=== PATIENT | male | born 1980 | race Caucasian/White ===

== ENCOUNTER → 2018-08-09 | Outpatient (CLI) | payer BC, OTHER ==
--- NOTE | 2018-08-09 10:34 | CONS ---
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 Radiographically the implant looks very good with no changes from x-rays taken 2008. However given the patient's symptoms laboratory markers including ESR, CRP, CBC with differential, metal ion levels will need to be obtained to rule out any possible infection and/or metallosis. If all these labs are normal this is likely a soft tissue issue. His knee pain is secondary to distal IT band tendinitis. The patient is very active and runs triathlons. Recommended the patient that although the hip resurfacing was designed for active people that ongoing high impact activities such as running and triathlons and training for them could and will decrease the longevity of the implant. Recommended continued physical activity but she is low impact activities. Will call patient with the lab results. If the results are normal will start outpatient physical therapy for greater trochanteric bursitis, IT band tendinitis, and patellofemoral syndrome. If the labs are abnormal he will follow-up for a clinic visit. Consultation Date/Type/Reason Admit Date/Time Date of Consultation: Aug 09, 2018 Reason for Consultation Right hip and knee pain Date/Time of Note DATE: 08/09/18 TIME: 10:32 Hx of Present Illness This is a 30-year-old male presents to clinic today for right hip and right knee pain for about 1.5 years. He has a history of a right hip resurfacing by Dr. Shea in 2007 for AVN of the femoral head. He was doing very well until 1.5 years ago. He is very active and does participate in triathlons. He does complain of groin pain as well as lateral hip pain as well as lateral knee pain. Denies any mechanical symptoms in the knee or swelling in the knee. The pain is most significant severe when running. He can tolerate the swimming and cycling portions of the triathlon however the running portion and weightbearing activities does cause him pain. 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 Denies any fevers or chills. The pain is 4/10. Described as sharp and throbbing. He has been taking ibuprofen and icing. This does help. Patient denies a limp. Denies need for gait aids. Denies numbness and tingling. Denies any history of back issues. Patient denies fever, chills, shortness of breath, chest pain, nausea/vomiting, constipation, diarrhea, numbness, and tingling. Past Medical History Medical History: no pertinent history (We will) Allergies: Coded Allergies: No Known Allergy (Verified Allergy, Unknown, 11/07/08) Past Surgical History Right hip resurfacing 2007 Family History Significant Family History: no pertinent family hx Social History Alcohol Use: none Smoking Status: Former smoker Drug Use: none Exam/Review of Systems Exam Vitals Weight: 185 pounds Height: 6 Temperature: 98.6 Heart Rate: 72 Blood Pressure: 120/82 Respiratory Rate: 12 Exam General: Awake, alert, in no acute distress, pleasant and cooperative Heart: regular rhythm Lungs: breathing comfortably, no tachypnea or dyspnea Musculoskeletal: Well developed male in no apparent distress. Gait demonstrates a mild Trendelenburg with and antalgic components and no short leg component. Standing, the pelvis is level and supine there is no true leg length discrepancy. Neutral alignment. No thrust at the knee. There is significant tenderness over trochanteric bursa and the distal IT band. ----- Range of motion: Flexion: 110 Extension: 0 Internal rotation: 15 External rotation: 30 Abduction: 45 Adduction: 10 Positive Zurdo's test. ----- There is pain on palpation of distal IT band and Gerdy's tubercle. The patient demonstrates some patellofemoral crepitance with ROM. Range of motion: 0 extension to approximately 130 degrees of flexion. Collateral ligament testing reveals no instability with varus or valgus stress at 0 and 30 degrees of flexion. Negative Joshua's and negative posterior drawer. Sitting there is no pelvic obliquity. Anterior and anterior lateral pain at the extremes of motion of the affected hip. Skin was intact throughout both lower extremities. Sensation intact to light touch in a sural, saphenous, deep peroneal, superficial peroneal, medial and lateral planta r nerve distribution. Neurovascular exam showed 5/5 strength in the abductors, quads, EHL/tibialis anterior/gastroc. Normal and symmetrical pulses were palpated in both the dorsalis pedis and posterior tibial arteries. There is no sign of venous stasis. ----- Neurovascularly intact with 5/5 EHL/tibialis anterior/gastroc. Sensation intact to light touch in a sural, saphenous, deep peroneal, superficial peroneal, medial and lateral plantar nerve distribution. Palpable, symmetric dorsalis pedis and posterior tibial pulses in both lower extremities. Hip examination normal. Imaging Imaging Xrays obtained in clinic today and personally reviewed by myself: AP pelvis and AP/Lat of the right hip demonstrate hip s/p hip resurfacing with hip reduced. Components in good position and alignment. No signs of wear, osteolysis, loosening, component failure, or fracture. No acute complications. These x-rays were compared to previous x-rays dating back to 2008 with no significant changes. The patient received a standard set of films today that were personally reviewed. Imaging included a standing bilateral knee AP, PA flexion, merchant views and a dedicated lateral of the affected knee: There is neutral alignment of the knee. There is no loss of joint space in any compartment(s). No fracture. No joint effusion. Normal knee x-ray ROX BELTRAN MD Aug 09, 2018 10:34
--- NOTE | 2018-08-11 07:47 | RADRPT ---
PROCEDURE: XR pelvis and right Hip. CLINICAL INDICATION: Pain TECHNIQUE: AP pelvis and AP and frog lateral views of the right hip were performed. COMPARISON: Right hip study 12/30/2011 FINDINGS: There is a total right hip prosthesis without dislocation or loosening. Mild degenerate joint disease left hip. No acute fracture dislocation. No focal bony blastic or lytic lesions. Soft tissues are un remarkable. IMPRESSION: Unremarkable total right hip prosthesis without acute fractures or dislocations. RPTAT:AAJJ Physician Lala Date Time Electronically viewed and signed by Allen Solis Physician on 08/11/2018 07:47 BM/
--- NOTE | 2018-08-11 07:48 | RADRPT ---
PROCEDURE: Bilateral knee series CLINICAL INDICATION: Pain TECHNIQUE: AP weightbearing, PA axial weightbearing, lateral weightbearing and sunrise views of the right left knees were obtained. COMPARISON: None FINDINGS: No evidence acute fractures or dislocations. Bony mineralization is normal. No focal bony blastic or lytic lesions. Small osteochondroma involving the lateral proximal right tibia. Soft tissues are unre markable. No evidence of right or left knee joint effusions. IMPRESSION: No evidence acute fractures dislocations or joint effusions. RPTAT:AAJJ Physician Lala Date Time Electronically viewed and signed by Allen Solis Physician on 08/11/2018 07:47 BM/
== END | disposition home or self-care (01) ==
LOC: HKI 10:06
PROVIDERS: ATTEND Orthopaedic Surgery Adult Reconstructive Orthopaedic Surgery
DX: M25.551 Pain in right hip (principal); M25.561 Pain in right knee; M76.51 Patellar tendinitis, right knee
CPT/HCPCS: 73502; 73564; G0463